=== PATIENT | male | born 1970 ===

== ENCOUNTER 2019-10-05 16:17 | Emergency (ER) | payer SELFPAY ==
--- NOTE | 2019-10-05 16:47 | Emergency Department Report ---
Blank Doc - Documentation Documentation: 49-year-old male that presents with left arm pain and swelling. Uncontrolled HTN. This initial assessment/diagnostic orders/clinical plan/treatment(s) is/are subject to change based on patient's health status, clinical progression and re- assessment by fellow clinical providers in the ED. Further treatment and workup at subsequent clinical providers discretion. Patient/guardians urged not to elope from the ED as their condition may be serious if not clinically assessed a nd managed. Initial orders include: 1- Patient sent to [facility] for further evaluation and treatment 2- EKG 3- labs
[2019-10-05] MEDS ORDERED: hydroCHLOROthiazide 25 MG TAB PO ONE (17:10)
[2019-10-05] MEDS ORDERED: amLODIPine 5 MG TAB PO ONE (17:10)
--- NOTE | 2019-10-05 18:00 | Vascular Lab Report ---
Left upper extremity venous Doppler Ultrasound HISTORY: left arm swelling. TECHNIQUE: Grayscale and color Doppler imaging performed. COMPARISON: None FINDINGS: No thrombus identified from the level of the left internal jugular vein through the subclav june, axillary, brachial, cephalic, basilic, radial, and ulnar veins. IMPRESSION: Negative for DVT. Signer Name: Refugio Rodriguez MD Signed: 10/05/2019 5:55 PM Workstation Name: [id number]
[2019-10-05 21:15] VITALS: BP 165/92
--- NOTE | 2019-10-05 21:50 | Emergency Department Report ---
Upper Extremity - HPI Chief Complaint: High BP Stated Complaint: HIGH BLOOD PRESSURE Time Seen by Provider: 10/05/19 16:45 Upper Extremity: Left Shoulder, Left Arm, Left Forearm Occurred When: >5 Days Mechanism: Other (no injury) Symptoms: Yes Pain with Movement, Yes Swelling, No Deformity, No Limited Range of Movement, No Numbness, No Weakness, No Bruising/Ecchymosis, No Laceration or Abrasion Other History: Mr. Hodge is a 49-year-old male with history of hypertension who presents with left arm pain and swelling. The left arm began one week ago. No known trauma. On yesterday he developed left arm swelling from the forearm to the hand. Pain initially began in the antecubital region. Pain now radiating up to the shoulder and down to the hand. Worse with arm movement. No history of recent travel. He does smoke tobacco. No history of clotting disorders. He has not had primary care in quite some time. 4 years ago diagnosed with hypertension. Due to erectile dysfunction he stopped taking lisinopril and hydrochlorothiazide which was prescribed to him. He denies headache. He denies chest pain. Denies abdominal pain. Denies paresthesias. 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 ED Review of Systems ROS: Stated complaint: HIGH BLOOD PRESSURE Other details as noted in HPI Comment: All other systems reviewed and negative Constitutional: denies: fever, malaise Respiratory: denies: cough Cardiovascular: denies: chest pain Musculoskeletal: other (left forearm pain) Skin: denies: rash, lesions ED Past Medical Hx - Past Medical History Previous Medical History?: No - Surgical History Past Surgical History?: No - Social History Smoking Status: Current Every Day Smoker Substance Use Type: Alcohol, Marijuana - Medications Home Medications: Home Medications Medication Instructions Recorded Confirmed Last Taken Type amLODIPine 5 mg PO DAILY 90 Days #90 tab 10/05/19 Unknown Rx hydroCHLOROthiazide [HCTZ] 25 mg PO QDAY 90 Days #90 tablet 10/05/19 Unknown Rx Upper Extremity Exam - Exam General: Vital signs noted. No distress. Alert and acting appropriately. Heent: NCAT normal white sclerae Neck: supple ROM Chest: CTA b Back: normal inspection Lower Extremities: no swelling Abdomen: soft NT ND LUE: mild tenderness radial side, mild edema extending toward hand Head and Torso: No HEENT Abnormality, No Neck Tenderness, No Chest/Lungs Abnormality, No Abdominal Tenderness, No Back Tenderness Shoulder Exam: Yes Normal Range of Motion in Shoulder, No Shoulder Tenderness, No Clavicle Tenderness, No Shoulder Deformity, No AC Joint Tenderness Arm Exam: No Arm/Humerus Tenderness, No Arm Deformity Elbow: Yes Normal Range of Motion in Elbow, No Elbow Tenderness, No Elbow Deformity Forearm: Yes Forearm Tenderness (mild edema forearm lateral ), No Forearm Deformity, No Pain with Pronation, No Pain with Supination Wrist: Yes Normal ROM in Wrist, No Wrist Tenderness, No Wrist Deformity, No Snuffbox Tenderness, No Pain with Axial Thumb Compression Hand: Yes Normal ROM in Digit(s), No Hand Tenderness, No Hand Deformity, No Digit Tenderness, No Digit(s) Deformity, No Tendon Dysfunction CMS Exam: Yes Normal Distal Pulses, Yes Normal Capillary Refill, Yes Normal Distal Sensation, No Broken Skin ED Course Vital Signs 10/05/19 10/05/19 10/05/19 16:35 17:24 19:32 Temperature 98.1 F 98.2 F Pulse Rate 80 80 62 Respiratory 18 16 Rate Blood Pressure 199/119 199/119 Blood Pressure 165/92 [Left] O2 Sat by Pulse 99 100 Oximetry ED Medical Decision Making - EKG Data 10/05/19 21:55 EKG obtained 1641 NSR rate 75 bpm nl axis nl intervals nl ST elevation inverted T waves No ST elevation - Radiology Data Radiology results: report reviewed US LUE: no DVT - Medical Decision Making 1. left arm pain swelling: DVT ruled out with duplex US DDX: muscle sprain, contusion, superficial thrombophlebitis referred to outpatient physician 2. hypertensive urgency: asymptomatic, rx: amlodipine, HCTZ Critical care attestation.: If time is entered above; I have spent that time in minutes in the direct care of this critically ill patient, excluding procedure time. ED Disposition Clinical Impression: Left arm swelling, Hypertensive urgency Disposition: DC-01 TO HOME OR SELFCARE Is pt being admited?: No Does the pt Need Aspirin: No Condition: Stable Additional Instructions: You have been referred to outpatient medicine physician for further evaluation. Prescriptions: amLODIPine 5 mg PO DAILY 90 Days #90 tab hydroCHLOROthiazide [HCTZ] 25 mg PO QDAY 90 Days #90 tablet Referrals: AZAM MCGHEE MD [Staff Physician] - 3-5 Days
== END 2019-10-05 19:32 | disposition home or self-care (01) ==
LOC: ED 16:17
DX: I16.0 Hypertensive urgency (principal); M79.602 Pain in left arm; R22.42 Localized swelling, mass and lump, left lower limb; F17.200 Nicotine dependence, unspecified, uncomplicated; F12.10 Cannabis abuse, uncomplicated; Z91.013 Allergy to seafood
CPT/HCPCS: 93005; 93010